=== PATIENT | female | born 1980 | race African-American/Black ===

== ENCOUNTER 2021-02-14 10:10 | Outpatient (REF) | payer OTHER, SELFPAY ==
[2021-02-14 13:35] LABS: Estimated Average Glucose 108 mg/dL; Hemoglobin A1c % 5.4 %
== END 2021-02-14 10:11 | disposition home or self-care (01) ==
LOC: HO.WFDLDS 10:10
PROVIDERS: Visit Provider Family Medicine
DX: R73.01 Impaired fasting glucose (principal)
CPT/HCPCS: 36415; 83036

== ENCOUNTER → 2021-07-13 10:35 | Outpatient (BNVA) | payer OTHER, SELFPAY | PROVIDERS: PCP Family Medicine; Visit Provider Nurse Practitioner Family | DX: R40.0 Somnolence (principal); R06.83 Snoring | CPT/HCPCS: 99202 ==

== ENCOUNTER → 2021-08-13 14:38 | Outpatient (REF) | payer OTHER, SELFPAY | LOC: HO.SL 14:38 | PROVIDERS: Visit Provider Nurse Practitioner Family | DX: G47.33 Obstructive sleep apnea (adult) (pediatric) (principal); R06.83 Snoring; R40.0 Somnolence; E66.01 Morbid (severe) obesity due to excess calories; Z68.42 Body mass index [BMI] 45.0-49.9, adult | CPT/HCPCS: 95806 ==

== ENCOUNTER 2021-10-02 12:43 | Outpatient (REF) | payer OTHER, SELFPAY | END 2021-10-02 12:44 | disposition home or self-care (01) | LOC: HO.LNP 12:43 | PROVIDERS: Visit Provider Hospitalist | DX: Z20.822 Contact with and (suspected) exposure to COVID-19 (principal) | CPT/HCPCS: U0003; U0005 ==

== ENCOUNTER → 2022-01-15 13:47 | Outpatient (BNVA) | payer OTHER, SELFPAY | PROVIDERS: PCP Family Medicine; Visit Provider Nurse Practitioner Family | DX: G47.33 Obstructive sleep apnea (adult) (pediatric) (principal) | CPT/HCPCS: 99212 ==

== ENCOUNTER 2022-01-22 12:12 | Outpatient (REF) | payer OTHER, SELFPAY ==
[2022-01-22 13:59] LABS: MANUAL DIFF FLAG NO
[2022-01-22 14:14] LABS: Basophils Percent Auto 0.5 % (0-2); Eosinophils Absolute Auto 0.2 X10*3/uL (0.0-0.4); Eosinophils Percent Auto 3.5 % (0-4); Hematocrit 39.1 % (37.0-47.0); Hemoglobin 13.2 g/dl (12.0-16.0); Imm Gran Abs Auto 0.02 X10*3/uL (0.00-0.03); Imm Gran Pct Auto 0.4 % (0.0-0.4); Lymphocytes Absolute Auto 2.5 X10*3/uL (1.2-4.9); Lymphocytes Percent Auto 45.7 % (20-40); Mean Corpuscular HGB Conc 33.8 g/dl (31.0-35.0); Mean Corpuscular Hemoglobin 31.3 pg (27.0-33.0); Mean Corpuscular Volume 92.7 fL (80.0-98.0); Mean Platelet Volume 9.5 fL (9.4-12.3); Monocytes Absolute Auto 0.4 X10*3/uL (0.1-1.2); Monocytes Percent Auto 7.1 % (2-11); Neutrophils Absolute Auto 2.4 x10*3/uL (2.0-8.3); Neutrophils Percent Auto 42.8 % (45-73); Platelet Count 345 X10*3/uL (160-400); Red Blood Count 4.22 X10*6/uL (4.20-5.50); Red Cell Distribution Width 13.2 % (11.0-16.0); White Blood Count 5.5 X10*3/uL (4.8-10.8)
[2022-01-22 14:31] LABS: Appearance Urine Clear; Color Urine Yellow; Glucose Urine UA Negative (Negative); Leukocyte Esterase Urine Negative (Negative); Nitrite Urine Negative (Negative); Urine Blood Negative (Negative); Urine Ketones Negative (Negative); Urine Protein Negative (Neg-Trace)
[2022-01-22 14:42] LABS: Alanine Aminotransferase 34 U/L (0-31); Albumin Level 4.3 g/dL (3.5-5.0); Alkaline Phosphatase 73 U/L (39-117); Anion Gap 14 (12-20); Aspartate Amino Transferase 30 U/L (5-31); Bilirubin Total 1.1 mg/dL (0.0-1.0); Blood Urea Nitrogen 13 mg/dL (9-16); Calcium 9.6 mg/dL (8.4-10.2); Carbon Dioxide 25 mmol/L (22-29); Chloride 106 mmol/L (96-108); Cholesterol 161 mg/dL; Estimated Glomerular Filt Rate > 60; Glucose Fasting 87 mg/dL (60-99); HDL Cholesterol 40 mg/dL; LDL Cholesterol Calculated 98 mg/dl; Potassium 3.8 mmol/L (3.3-5.1); Sodium 141 mmol/L (135-145); TSH reflex Free T4 1.02 uIU/mL (0.32-4.0); Triglycerides 118 mg/dL
[2022-01-22 16:10] LABS: Creatinine Urine 74.37 mg/dL; Microalbumin Urine < 5.0 mg/L
== END 2022-01-22 12:13 | disposition home or self-care (01) ==
LOC: HO.WFDLDS 12:12
PROVIDERS: Visit Provider Family Medicine
DX: Z00.00 Encounter for general adult medical examination without abnormal findings (principal); I10 Essential (primary) hypertension
CPT/HCPCS: 36415; 80053; 80061; 81003; 82043; 84443; 85025

== ENCOUNTER 2022-04-16 09:21 | Outpatient (REF) | payer OTHER, SELFPAY ==
--- NOTE | ~2022-04-16 | MM_ITS ---
EXAMINATION: MM SCREENING DIGITAL BREAST TOMOSYNTHESIS, BILATERAL CLINICAL INFORMATION: Screening. Asymptomatic. The lifetime risk of breast cancer based on the Tyrer-Cuzick Model is 18%. COMPARISON: Mammography: None. TECHNIQUE: Digital breast tomosynthesis is performed in both the craniocaudal and mediolateral oblique views along with computer-aided detection (CAD). Synthesized 2D images are generated from the tomosynthesis. FINDINGS: There are scattered areas of fibroglandular density (ACR BI-RADS breast composition Category b). Within the right breast there is a lobulated, circumscribed density measuring approximately 1 cm in diameter, lying approximately 8 cm from the nipple. Within the left breast in mediolateral oblique projection there is an asymmetric density seen in the central breast, just superior to the nipple line, on medial oblique projection with the appearance of architectural distortion. Within the central lateral left breast there is an asymmetric density, with some adjacent serpiginous density, lying approximately 13 cm from the nipple. Multiple other circumscribed densities are present. MM/MM tomosynthesis screening BI IMPRESSION: Multiple bilateral breast densities for spot compression views and bilateral breast ultrasound. ASSESSMENT: BI-RADS 0: Incomplete - Need Additional Imaging Evaluation. RECOMMENDATION: 1. Additional views of the bilateral breasts. 2. Targeted ultrasound if warranted after review of the additional views. 3. Radiology department staff will contact the patient for additional imaging. This patient's information was entered into a reminder system with a target due date for their next mammogram.
== END 2022-04-16 09:22 | disposition home or self-care (01) ==
LOC: HO.MAMMO 09:21
PROVIDERS: PCP Family Medicine; Visit Provider Family Medicine
DX: Z12.31 Encounter for screening mammogram for malignant neoplasm of breast (principal)
CPT/HCPCS: 77063; 77067

== ENCOUNTER 2022-06-21 12:34 | Outpatient (REF) | payer OTHER, SELFPAY ==
--- NOTE | ~2022-06-21 | MM_ITS ---
EXAMINATION: MM DIAGNOSTIC DIGITAL BREAST TOMOSYNTHESIS, BILATERAL US DIAGNOSTIC ULTRASOUND BREAST, RIGHT CLINICAL INFORMATION: Recall from baseline exam for asymmetric density central outer left breast and macrolobulated nodule lateral right breast. TC score 18%. COMPARISON: Mammography: 04/16/2022 (baseline). TECHNIQUE: Digital breast tomosynthesis is performed. 2D images are generated from the tomosynthesis. The following views are obtained: Spot right CC x2, spot right MLO, spot left CC x2, spot left MLO x2. Ultrasound right breast is targeted to the anterior upper outer breast using grayscale imaging and color Doppler without and with harmonics. FINDINGS: There are scattered areas of fibroglandular density (ACR BI-RADS breast composition Category b). Additional views left breast shows scattered fibroglandular densities. There is no mass or architectural abnormality or persistent asymmetric density. Additional views right breast confirm a smooth nodule approximately 9:30 measuring around 1 cm residing 6-9 cm from nipple. Ultrasound right breast demonstrates a circumscribed hypoechoic nodule 8-10 cm from nipple measuring approximately 1.0 x 0.4 x 0.9 cm. Long axis is parallel with the skin. There is no increased or decreased through transmission of sound. No definite internal color flow. Results are discussed with the patient at time of visit. The right breast nodule has a benign appearance, possibly fibroadenoma. Suggest follow-up ultrasound in 6 months to confirm stability. MM/MM tomosynthesis added view BI IMPRESSION: Right: -Circumscribed nodule 9:30 o'clock measuring 1 cm, suspect fibroadenoma. Left: -Additional views show no suspicious findings. ASSESSMENT: BI-RADS 3: Probably Benign RECOMMENDATION: Targeted right breast ultrasound in 6 months. This patient's information was entered into a reminder system with a target due date for their next mammogram.
== END 2022-06-21 12:35 | disposition home or self-care (01) ==
LOC: HO.MAMMO 12:34
PROVIDERS: PCP Family Medicine; Visit Provider Family Medicine
DX: R92.2 Inconclusive mammogram (principal)
CPT/HCPCS: 76642; 77062; 77066

== ENCOUNTER 2022-09-18 10:04 | Outpatient (AMB) | payer OTHER, SELFPAY ==
--- NOTE | 2022-09-18 10:19 | MHC.PC.OV ---
Vital Signs 09/18/22 10:21 Height 4 ft 11 in Weight 218 lb 6 oz BMI 44.1 BP 116/62 Blood Pressure Location Lt brachial Position Sitting Pulse 72 Pulse Source Pulse Oximeter Pulse Oximetry (%) 99 Oxygen Delivery Method Room Air Intake Visit Reasons: f/u diabetes Intake Note: Patient is here for follow up diabetes Allergies No Known Allergies Allergy (Verified 09/18/22 10:22) Tobacco use date assessed: 09/18/22 Dental Screening Dental Screen Date: 09/18/22 Did you have a dental visit in the last 12 months?: No Did you have a dental problem in the last 6 months where you did not have access to dental care?: No Was dental information given to patient?: No HPI f/u diabetes HPI Details Pt presents to f/u diabetes. A1c today 09/18/22 5.6%. She is on metformin 500mg daily. She reports she has been walking more for exercise. Blood pressure today 116/62. She is on amlodipine 10mg and lisinopril 10mg daily. Pt states betamethasone cream has been helping with her dermatitis. [facility] Medical History Diabetes Hypertension Surgical History No pertinent past surgical history Family History (Updated 09/18/22 @ 10:27 by Yolande Webb CMA) Mother Mental health disorder Father No problems noted. Brother Substance abuse Autism Maternal Grandmother Mental health disorder Social History Housing: Apartment Alcohol intake: never Patient Tobacco Use Status: Never used Tobacco e-Cigarette/Vaping Use: Never Used Second Hand Smoke Exposure: No service: No Current occupational status: disabled Current occupational exposures/hazards: No Cognitive needs: No Hearing needs: No Vision needs: No Questionnaire PHQ-9 Over the last 2 weeks, how often have you been bothered by any of the following problems? 1. Little interest or pleasure in doing things: not at all 2. Feeling down, depressed, or hopeless: not at all 3. Trouble falling or staying asleep, or sleeping too much: not at all 4. Feeling tired or having little energy: not at all 5. Poor appetite or overeating: not at all 6. Feeling bad about yourself - or that you are a failure or have let yourself or your family down: not at all 7. Trouble concentrating on things, such as reading the newspaper or watching television: not at all 8. Moving or speaking so slowly that other people could have noticed. Or the opposite - being so fidgety or restless that you have been moving around a lot more than usual: not at all 9. Thoughts that you would be better off or of hurting yourself in some way: not at all Total score: 0 Depression Screening Interpretation: Negative Source: Developed by Drs. Ralph Carias, Constance Mcgee, Monico Clement and colleagues, with an educational viki from [employer]. Thrive Questionnaire Date Thrive assessed: 11/15/20 JOSÉ LUIS-7 AMB Questionnaire JOSÉ LUIS-7 Date JOSÉ LUIS - 7 assessed: 04/09/22 Source: Developed by Drs. Ralph Carias, Constance Mcgee, Monico Clement and colleagues, with an educational viki from [employer]. Review of Systems Const Denies chills, Denies fatigue, Denies fever(s), Denies headache(s) and Denies weakness ENT Denies dizziness and Denies headache(s) Card Denies chest pain, Denies lightheadedness, Denies dyspnea and Denies other (Palpitations) Resp Denies cough, Denies dyspnea, Denies wheezing and Denies other ( shortness of breath) Musc Denies numbness and Denies tingling Neuro Denies dizziness, Denies headache(s), Denies numbness, Denies tingling, Denies paresthesias and Denies weakness Psych Denies anxiety and Denies depression Endo Denies fatigue Aller/Immun Denies wheezing Physical exam (Primary Care) Vital Signs: Last Vital Signs Pulse 72 09/18/22 10:21 BP 116/62 09/18/22 10:21 Pulse Ox 99 09/18/22 10:21 Oxygen Delivery Method Room Air 09/18/22 10:21 BMI result Body Mass Index 44.1 Tobacco/Smoking Status: Tobacco use Status Tobacco use date assessed 09/18/22 09/18/22 10:27 Patient Tobacco Use Status Never used Tobacco 09/18/22 10:20 e-Cigarette/Vaping Use Never Used 09/18/22 10:20 PHQ-9: PHQ-9 Score PHQ-9: Total score 0 09/18/22 10:58 Depression Screening Interpretation: Negative Thrive Assessment: Date of Thrive Assessment Date Thrive assessed 11/15/20 09/18/22 10:20 Const General: no acute distress and well developed Nutritional Appearance: obese morbidly obese Orientation/consciousness: patient oriented x3 HENMT Head: Yes normocephalic and Yes atraumatic Eyes General: appearance normal, both eyes and all related structures Pupils: Equal, round and reactive pupils present EOM: EOMs intact bilaterally Resp Effort & Inspection: normal respiratory effort Auscultation: clear to auscultation bilaterally Cardio Rate: regular rate Rhythm: regular rhythm Heart sounds: S1 normal heart sound present, S2 normal heart sound present, no gallops, no murmurs and no rubs Neuro General: patient oriented x3 and gait normal Cranial nerves: Yes Equal, round and reactive pupils present Psych Affect: normal affect Results AMB Hemoglobin A1c AMB Hemoglobin A1c 5.6 % Last Edit by Yolande Webb CMA on 09/18/22 10:41 Results Reviewed Results Reviewed: Laboratory Last Values Hgb A1c (Clinic) 5.6 % (4.0-6.0) 09/18/22 10:40 Assessment and Plan Assessment & Plan (1) Diabetes type 2, controlled: Code(s): E11.9 - Type 2 diabetes mellitus without complications Plan: A1c 5.6% is good control. Goal is less than 7.0% Continue current medication regimen (2) Dermatitis: Code(s): L30.9 - Dermatitis, unspecified Plan: Ongoing right hand dermatitis which is responsive to betamethasone cream; refilled (3) Essential hypertension: Code(s): I10 - Essential (primary) hypertension Plan: Blood pressure is controlled. Goal is less than 140/90 Continue current medication regimen (4) Abnormal mammogram: Code(s): R92.8 - Other abnormal and inconclusive findings on diagnostic imaging of breast Plan: Additional views in June showed 1 cm lesion in right breast which is most likely a fibroadenoma. And showed no further abnormalities in the left breast. A six-month follow-up is recommended which would be in December. Orders: Orders AMB Hemoglobin A1c Today Z13.9 - Encounter for screening, unspecified Comprehensive [facility]igator. Panel Fast Today Z00.00 - Encounter for general adult medical examination without abnormal findings Lipid Panel Today Z00.00 - Encounter for general adult medical examination without abnormal findings TSH reflex Free T4 Today Z00.00 - Encounter for general adult medical examination without abnormal findings Microalbumin, Random (w Creat) Today I10 - Essential (primary) hypertension UA and rflx microscopic Today Z00.00 - Encounter for general adult medical examination without abnormal findings Referrals Ophthalmology Referral E11.9 - Type 2 diabetes mellitus without complications Medications: Refilled metformin ER 500 mg PO BEDTIME 90 tabs 0RF omeprazole 20 mg PO DAILY 90 caps 0RF lisinopril 10 mg PO DAILY 90 tabs 1RF hydrochlorothiazide 25 mg PO DAILY 90 tabs 2RF betamethasone dipropionate 0.05% 1 appl topical DAILY PRN 45 grams 2RF skin irritation 30 days amlodipine 10 mg PO DAILY 90 tabs 3RF 90 days Coding Level of Care Code Est Pt Level 4 (14496) Diagnoses Diabetes type 2, controlled E11.9 Dermatitis L30.9 Essential hypertension I10 Abnormal mammogram R92.8
[2022-09-18 10:21] VITALS: BP 116/62; PULSE 72; O2SAT 99; BMI 44.1
== END 2022-09-18 11:05 | disposition home or self-care (01) ==
PROVIDERS: PCP Family Medicine; Visit Provider Family Medicine
DX: E11.620 Type 2 diabetes mellitus with diabetic dermatitis (principal); I10 Essential (primary) hypertension; L30.9 Dermatitis, unspecified; R92.8 Other abnormal and inconclusive findings on diagnostic imaging of breast
CPT/HCPCS: 83036; 99214

== ENCOUNTER 2022-12-20 10:30 | Outpatient (REF) | payer OTHER, SELFPAY ==
--- NOTE | ~2022-12-20 | US_ITS ---
EXAMINATION: US DIAGNOSTIC ULTRASOUND BREAST, RIGHT CLINICAL INFORMATION: 6 month Follow-up probably benign mass right breast 9:00 axis, 10 cm from the nipple. COMPARISON: 06/21/2022 ultrasound right breast. TECHNIQUE: Ultrasound of the right breast is performed with real-time issa scale imaging and color Doppler. Attention was given to the 9:00 axis. FINDINGS: There is a stable oval circumscribed hypoechoic mass at the 9:00 axis, 10 cm from the nipple, measuring 0.9 x 0.4 x 0.9 cm, unchanged. There is no internal color Doppler flow. There are no posterior features. This remains probably benign and is likely a fibroadenoma or variant. No additional abnormalities noted. US/US breast RT limited mamm only IMPRESSION: No significant interval change in subcentimeter right breast 9:00 oval probably benign mass. Six-month interval follow-up recommended to establish one-year stability. Results were discussed with the patient at time of visit. ASSESSMENT: BI-RADS 3: Probably Benign RECOMMENDATION: Diagnostic ultrasonography right breast in 6 months. This patient's information was entered into a reminder system with a target due date.
== END 2022-12-20 10:31 | disposition home or self-care (01) ==
LOC: HO.MAMMO 10:30
PROVIDERS: PCP Family Medicine; Visit Provider Family Medicine
DX: N63.15 Unspecified lump in the right breast, overlapping quadrants (principal)
CPT/HCPCS: 76642

== ENCOUNTER → 2022-12-20 11:00 | Outpatient (BNV) | payer OTHER, SELFPAY | PROVIDERS: PCP Family Medicine; Visit Provider Radiology Diagnostic Radiology | DX: D24.1 Benign neoplasm of right breast (principal) | CPT/HCPCS: 76642 ==

== ENCOUNTER 2023-01-20 08:49 | Outpatient (REF) | payer OTHER, SELFPAY ==
[2023-01-20 11:13] LABS: Appearance Urine Turbid; Color Urine Yellow; Glucose Urine UA Negative (Negative); Leukocyte Esterase Urine Negative (Negative); Nitrite Urine Negative (Negative); PH 5.5 (5.0-9.0); Specific Gravity - Urine 1.025 (1.005-1.025); Urine Blood Negative (Negative); Urine Ketones Negative (Negative); Urine Protein Trace mg/dL (Neg-Trace)
[2023-01-20 11:47] LABS: Alanine Aminotransferase 45 U/L (0-31); Albumin Level 4.3 g/dL (3.5-5.0); Alkaline Phosphatase 70 U/L (39-117); Anion Gap 11 (12-20); Aspartate Amino Transferase 38 U/L (5-31); Bilirubin Total 1.2 mg/dL (0.0-1.0); Blood Urea Nitrogen 12 mg/dL (9-16); Calcium 9.3 mg/dL (8.4-10.2); Carbon Dioxide 28 mmol/L (22-29); Chloride 105 mmol/L (96-108); Cholesterol 168 mg/dL (<200); Estimated Glomerular Filt Rate > 60; Glucose Fasting 93 mg/dL (60-99); HDL Cholesterol 46 mg/dL (>40); LDL Cholesterol Calculated 108 mg/dL (<100); Potassium 3.7 mmol/L (3.3-5.1); Sodium 140 mmol/L (135-145); Total Protein 7.5 g/dL (6.5-8.0); Triglycerides 74 mg/dL (<150)
[2023-01-20 12:05] LABS: Creatinine Urine 226.54 mg/dL; Microalbum/Creatinine Ratio Ur 28.2 ug/mg cr (<30)
[2023-01-20 12:06] LABS: TSH reflex Free T4 1.04 uIU/mL (0.32-4.0)
== END 2023-01-20 08:50 | disposition home or self-care (01) ==
LOC: HO.WFDLDS 08:49
PROVIDERS: Visit Provider Family Medicine
DX: Z00.00 Encounter for general adult medical examination without abnormal findings (principal); I10 Essential (primary) hypertension
CPT/HCPCS: 36415; 80053; 80061; 81003; 82043; 82570; 84443

== ENCOUNTER 2023-01-27 08:27 | Outpatient (AMB) | payer OTHER, SELFPAY ==
--- NOTE | 2023-01-27 08:37 | A.OFFPC_ITS ---
Vital Signs 01/27/23 08:38 Height 4 ft 11 in Weight 225 lb BMI 45.4 BP 122/72 Blood Pressure Location Rt brachial Position Sitting Pulse 71 Pulse Source Pulse Oximeter Pulse Oximetry (%) 98 Oxygen Delivery Method Room Air Intake Visit Reasons: Extended exam with f/u labs and health maintenance Intake Note: Patient is here for extended exam and follow up labs. Allergies No Known Allergies Allergy (Verified 01/27/23 08:39) Tobacco use date assessed: 01/27/23 Dental Screening Dental Screen Date: 01/27/23 Did you have a dental visit in the last 12 months?: No Did you have a dental problem in the last 6 months where you did not have access to dental care?: No Was dental information given to patient?: No HPI Extended exam with f/u labs and health maintenance HPI Details 42 y/o female presents for an extended e xam with f/u labs and health maintenance. Labs were drawn 01/20/23. Reviewed labs with pt. Elevated liver enzymes - AST 38 and ALT 45. She denies EtOH/tylenol use. Triglycerides 74. TC 168. LDL 108. HDL 46. A1c today 01/27/23 is 5.5%. She is on metformin 500mg. Blood pressure today 122/72. She is on lisinopril 10mg, hydrochlorothiazide 25mg and amlodipine 10 mg daily. [facility] Medical History Hypertension Diabetes Surgical History No pertinent past surgical history Family History Mother Mental health disorder Father No problems noted. Brother Substance abuse Autism Maternal Grandmother Mental health disorder Social History Housing: Apartment Alcohol intake: never Patient Tobacco Use Status: Never used Tobacco e-Cigarette/Vaping Use: Never Used Second Hand Smoke Exposure: No service: No Current occupational status: disabled Current occupational exposures/hazards: No Cognitive needs: No Hearing needs: No Vision needs: No Questionnaire Thrive Questionnaire Date Thrive assessed: 11/15/20 JOSÉ LUIS-7 AMB Questionnaire JOSÉ LUIS-7 Date JOSÉ LUIS - 7 assessed: 04/09/22 Source: Developed by Drs. Ralph Carias, Constance Mcgee, Monico Clement and colleagues, with an educational viki from [employer]. Review of Systems Const Denies chills, Denies fatigue, Denies fever(s), Denies headache(s) and Denies weakness Eyes Denies change in vision ENT Denies dizziness, Denies headache(s), Denies hearing loss, Denies nasal congestion, Denies sinus pain, Denies sinus pressure and Denies sore throat Card Denies chest pain, Denies lightheadedness, Denies dyspnea and Denies other (palpitations) Resp Denies cough, Denies dyspnea and Denies wheezing GI Denies abdominal pain, Denies melena, Denies hematochezia, Denies change in bowel habits, Denies dyspepsia and Denies nausea Denies hematuria and Denies dysuria Musc Denies abnormal gait, Denies myalgias, Denies arthralgias, Denies numbness and Denies tingling Skin/Breast Denies rash, Denies unusual bruising and Denies wounds Neuro Denies abnormal gait, Denies dizziness, Denies headache(s), Denies memory loss, Denies numbness, Denies Sensory deficit (Neuro), Denies tingling and Denies weakness Psych Denies anxiety, Denies depression and Denies memory loss Endo Denies cold intolerance, Denies fatigue, Denies heat intolerance, Denies polydipsia and Denies polyuria Carlos/Lymph Denies easy bleeding and Denies easy bruising Aller/Immun Denies wheezing Physical exam (Primary Care) Vital Signs: Last Vital Signs Pulse 71 01/27/23 08:38 BP 122/72 01/27/23 08:38 Pulse Ox 98 01/27/23 08:38 Oxygen Delivery Method Room Air 01/27/23 08:38 BMI result Body Mass Index 45.4 Tobacco/Smoking Status: Tobacco use Status Tobacco use date assessed 01/27/23 01/27/23 08:45 Patient Tobacco Use Status Never used Tobacco 01/27/23 08:38 e-Cigarette/Vaping Use Never Used 01/27/23 08:38 Thrive Assessment: Date of Thrive Assessment Date Thrive assessed 11/15/20 01/27/23 08:38 Const General: no acute distress, well developed, alert and awake Nutritional Appearance: obese morbidly obese Orientation/consciousness: patient oriented x3 HENMT Head: Yes normocephalic and Yes atraumatic Ears: hearing grossly normal bilaterally and TM's normal bilaterally General nose exam: Normal external nose present and Normal nares present Mouth: Normal oral and palatal mucosa present and moist mucous membranes Teeth and gingiva: dentition normal Throat: Yes posterior oropharynx normal Eyes General: appearance normal, both eyes and all related structures Pupils: Equal, round and reactive pupils present and Pupil accommodation reflex normal EOM: EOMs intact bilaterally Neck Neck: Yes normal visual inspection, Yes no lymphadenopathy and Yes trachea midline Thyroid: Thyroid normal Carotids: no bruits Lymphatic: no lymphadenopathy noted Chest Chest palpation & inspection: normal inspection of the chest Resp Effort & Inspection: normal respiratory effort Auscultation: clear to auscultation bilaterally Cardio Rate: regular rate Rhythm: regular rhythm Heart sounds: S1 normal heart sound present, S2 normal heart sound present, no gallops, no murmurs and no rubs Bruits: no abdominal aortic bruits and no carotid bruits GI Palpation (GI): No Abdominal aortic bruit present, Soft to palpation, nontender, No hepatosplenomegaly present and No Rebound tenderness present Auscultation: normal bowel sounds General: Yes no CVA tenderness Back/Spine/Pelvis Back: no CVA tenderness Cervical Spine: cervical ROM normal and No Cervical spine tenderness Thoracic/Lumbar Spine: thoraco-lumbar ROM normal, No pain with thoraco-lumbar ROM, No thoracic spinal tenderness and No lumbar spinal tenderness Skin Lesions: no lesions Rashes: no rashes Trauma: no lacerations or abrasions Wounds: no wounds Nails: normal Neuro General: patient oriented x3 Cranial nerves: Yes Equal, round and reactive pupils present Cognition (Neuro): normal cognition Gait exam (Neuro): Normal gait present Motor exam (neuro): 5/5 motor strength present throughout Sensory Exam: No Sensory deficit (Neuro) Deep tendon reflexes (DTR's): Right patellar reflex intensity grade: 2+ and Left patellar reflex intensity grade: 2+ Extrem General: Yes normal to inspection and No edema Psych Appearance: grossly normal Affect: normal affect Attitude: cooperative Thought process: Normal thought process present Results AMB Hemoglobin A1c AMB Hemoglobin A1c 5.5 % Last Edit by Yolande Webb CMA on 01/27/23 09:43 Assessment and Plan Assessment & Plan (1) Essential hypertension: Code(s): I10 - Essential (primary) hypertension Plan: Blood?pressure?is?controlled.??Goal?is?less?than?140/90 Continue?current?medication?regimen (2) Diabetes type 2, controlled: Code(s): E11.9 - Type 2 diabetes mellitus without complications Plan: A1c?5.5%?is?good?control.??Goal?is?less?than?7.0% Continue?current?medication?regimen Continue?healthy?diabetic?diet Encouraged?exercise Overdue?for?eye?exam?and?she?requests?a?referral[facility]to[facility] - refer (3) Elevated liver enzymes: Code(s): R74.8 - Abnormal levels of other serum enzymes Plan: Check?ultrasound Encouraged?weight?loss (4) Breast cancer screening by mammogram: Code(s): Z12.31 - Encounter for screening mammogram for malignant neoplasm of breast Plan: Recent?abnormal?mammogram?and?had?follow-up?ultrasound. Ultrasound?likely?benign?but?recommends?six-month?follow-up?as?well. 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 Orders: Orders AMB Hemoglobin A1c Today Z13.9 - Encounter for screening, unspecified US abdomen wilks w elastography Today R74.01 - Elevation of levels of liver transaminase levels Lipid Panel Today E11.9 - Type 2 diabetes mellitus without complications, Z00.00 - Encounter for general adult medical examination without abnormal findings Comprehensive [place]. Panel Fast Today E11.9 - Type 2 diabetes mellitus without complications, Z00.00 - Encounter for general adult medical examination without abnormal findings Referrals Ophthalmology Referral E11.9 - Type 2 diabetes mellitus without complications [employer] Referral Z12.4 - Encounter for screening for malignant neoplasm of cervix Medications: Refilled betamethasone dipropionate 0.05% 1 appl topical DAILY 30 days PRN 45 grams 2RF skin irritation Coding Level of Care Code Est Pt Level 4 (79443) Diagnoses Essential hypertension I10 Diabetes type 2, controlled E11.9 Elevated liver enzymes R74.8 Breast cancer screening by mammogram Z12.31 Morbid obesity with BMI of 45.0-49.9, adult E66.01; Z68.42 Screening for cervical cancer Z12.4 Adult general medical exam Z00.00
[2023-01-27 08:38] VITALS: BP 122/72; PULSE 71; O2SAT 98; BMI 45.4
== END 2023-01-27 09:49 | disposition home or self-care (01) ==
PROVIDERS: PCP Family Medicine; Visit Provider Family Medicine
DX: I10 Essential (primary) hypertension (principal); E11.9 Type 2 diabetes mellitus without complications; E66.01 Morbid (severe) obesity due to excess calories; Z68.42 Body mass index [BMI] 45.0-49.9, adult; R74.8 Abnormal levels of other serum enzymes; Z12.31 Encounter for screening mammogram for malignant neoplasm of breast
CPT/HCPCS: 83036; 99214

== ENCOUNTER 2023-04-04 09:31 | Outpatient (REF) | payer OTHER, SELFPAY ==
--- NOTE | ~2023-04-04 | US_ITS ---
EXAMINATION: US ABDOMEN LIMITED WITH LIVER ELASTOGRAPHY CLINICAL INFORMATION: Elevation of a LT and AST levels. COMPARISON: None available. TECHNIQUE: Real-time imaging of the abdominal viscera. Noninvasive ultrasound liver fibrosis assessment is performed using Izzy ElastPQ point quantification shear wave elastography (2D-SWE) with a C5-2 MHz transducer. Multiple elastography samples are obtained. FINDINGS: PANCREAS: Limited. The visualized pancreatic head and body are normal in appearance. The remainder of the pancreas is obscured from visualization by the overlying bowel gas. LIVER: The liver demonstrates normal contour and increased echogenicity. No focal lesion or intrahepatic biliary duct dilatation. The right lobe measures 19.1 cm in length. The left lobe measures 11.1 cm in length. Portal flow is towards the liver (hepatopetal). Shear wave liver elastography median stiffness is 1.52 m/s (reference: normal median stiffness is 1.3 m/s or less). IQR/median stiffness to assess sampling precision is 0.04 (reference: good quality data set is IQR/median stiffness of 0.15 or less). GALLBLADDER: Normal. The gallbladder is physiologically distended without evidence of stones, sludge, polyps, wall thickening or pericholecystic fluid. COMMON BILE DUCT: Normal in caliber measuring 0.3 cm in diameter. RIGHT KIDNEY: Normal. No hydronephrosis. No renal calculi or focal parenchymal lesions. The kidney measures 11.1 cm in maximum dimension. FREE FLUID: None. US/US abdomen wilks w elastography IMPRESSION: 1. There is generalized increase in hepatic echotexture, consistent with fatty infiltration or hepatocellular disease. Please correlate clinically. No focal hepatic mass or intrahepatic biliary dilatation is seen. 2. Liver elastography: In the absence of other known clinical signs, measurements rule out compensated advanced chronic liver disease. If there are known clinical signs, further testing may be needed for confirmation. 3. There is hepatomegaly. 4. Technically limited ultrasound examination of the pancreatic tail. REFERENCE: Society of Radiologists in Ultrasound Liver Stiffness Thresholds (2020): LIVER STIFFNESS THRESHOLDS: *Liver Stiffness equal or less than 1.3 m/s: High probability of being normal. *Liver Stiffness less than 1.7 m/s: In the absence of other known clinical signs, rules out compensated advanced chronic liver disease. *Liver Stiffness 1.7-2.1 m/s: Suggestive of compensated advanced chronic liver disease but need further test for confirmation. *Liver Stiffness over 2.1 m/s: Rules in compensated advanced chronic liver disease. *Liver Stiffness over 2.4 m/s: Suggestive of clinically significant portal hypertension. QUALITY OF DATA SET: *IQR/Median value equal or less than 0.15 implies a quality data set. *IQR/Median value over 0.15 implies a poor quality data set. SIGNIFICANT CHANGE FROM PRIOR EXAM: Significant change if liver stiffness measurement is 10% or greater from prior exam. OTHER CONSIDERATIONS: The stage of liver fibrosis may be overestimated in the setting of acute hepatitis, liver inflammation, elevated liver function tests, hepatic vascular congestion, obstructive cholestasis, non-fasting state, and infiltrative diseases such as amyloidosis and lymphoma. In some patients with NAFLD, the liver stiffness thresholds for compensated advanced chronic liver disease may be lower. In causes other than viral hepatitis and NAFLD, liver stiffness thresholds are not well established.
== END 2023-04-04 09:32 | disposition home or self-care (01) ==
LOC: HO.US 09:31
PROVIDERS: PCP Family Medicine; Visit Provider Family Medicine
DX: R74.01 Elevation of levels of liver transaminase levels (principal)
CPT/HCPCS: 76705; 76981

== ENCOUNTER 2023-04-28 09:07 | Outpatient (AMB) | payer OTHER, SELFPAY ==
[2023-04-28 09:23] VITALS: BP 120/70; PULSE 81; O2SAT 98; BMI 45.0
--- NOTE | 2023-04-28 09:23 | A.OFFPC_ITS ---
Vital Signs 04/28/23 09:23 Height 4 ft 11 in Weight 223 lb BMI 45.0 BP 120/70 Blood Pressure Location Lt brachial Position Sitting Pulse 81 Pulse Source Pulse Oximeter Pulse Oximetry (%) 98 Oxygen Delivery Method Room Air Intake Visit Reasons: f/u diabetes, hypertension Intake Note: Patient is here with diabetes and hypertension. Allergies No Known Allergies Allergy (Verified 04/28/23 09:25) Medication List - Last Reconciled 04/28/23 by Rafael Bernal MD amlodipine 10 mg PO DAILY 90 days betamethasone dipropionate 0.05% 1 appl topical DAILY PRN 30 days blood sugar diagnostic (FreeStyle Lite Strips) DX: E11.9, test blood sugar once a day, 90 days blood-glucose meter (FreeStyle Lite Meter kit) DX: E11.9, test blood sugar once day, duration 999 days hydrochlorothiazide 25 mg PO DAILY lancets (FreeStyle Lancets) As directed lisinopril 10 mg PO DAILY metformin ER 500 mg PO BEDTIME omeprazole 20 mg PO DAILY Tobacco use date assessed: 04/28/23 Dental Screening Dental Screen Date: 04/28/23 Did you have a dental visit in the last 12 months?: Yes Did you have a dental problem in the last 6 months where you did not have access to dental care?: No Was dental information given to patient?: Patient has dentist HPI f/u diabetes, hypertension HPI Details 42 y/o female presents to f/u diabetes a nd hypertension. Blood pressure today 120/70. She is on amlodipine 10mg, lisinopril 10mg, HCTZ 25mg daily. A1c today 04/28/23 is 6.2%. She is on metformin 500mg daily. She denies any problems with her medication regimen. She ntoes she has not had a diabetic eye exam yet. FORMERLY [facility], [facility] Medical History Hypertension Diabetes Surgical History No pertinent past surgical history Family History Mother Mental health disorder Father No problems noted. Brother Substance abuse Autism Maternal Grandmother Mental health disorder Social History (Reviewed 02/19/24 @ 09:[address] [facility] Housing: Apartment Alcohol intake: never Patient Tobacco Use Status: Never used Tobacco e-Cigarette/Vaping Use: Never Used Second Hand Smoke Exposure: No service: No Current occupational status: disabled Current occupational exposures/hazards: No Cognitive needs: No Hearing needs: No Vision needs: No Questionnaire PHQ-9 Over the last 2 weeks, how often have you been bothered by any of the following problems? 1. Little interest or pleasure in doing things: not at all 2. Feeling down, depressed, or hopeless: not at all 3. Trouble falling or staying asleep, or sleeping too much: not at all 4. Feeling tired or having little energy: not at all 5. Poor appetite or overeating: not at all 6. Feeling bad about yourself - or that you are a failure or have let yourself or your family down: not at all 7. Trouble concentrating on things, such as reading the newspaper or watching television: not at all 8. Moving or speaking so slowly that other people could have noticed. Or the opposite - being so fidgety or restless that you have been moving around a lot more than usual: not at all 9. Thoughts that you would be better off or of hurting yourself in some way: not at all Total score: 0 Depression Screening Interpretation: Negative Depression Screening Done: Yes 64430 - PHQ-9 Billing: Yes Source: Developed by Drs. Ralph Carias, Constance Mcgee, Monico Clement and colleagues, with an educational viki from [employer]. Thrive Questionnaire Date Thrive assessed: 04/28/23 I am a: Patient What is your living situation today?: I have a steady place to live Within the past 12 months, did the food you bought not last and you didn't have the money to get more?: Often true Within the past 12 months, did you worry whether your food would run out before you got money to buy more?: Never true Do you have trouble paying for medicines?: No Do you have trouble getting transportation to medical appointments?: No Do you have trouble paying your heating and electricity bill?: No Do you have trouble taking care of your child, family member or friend?: No Do you have trouble with day-to-day activities such as bathing, preparing meals, shopping, managing finances, etc.?: No Are you currently unemployed and looking for a job?: No Are you interested in more education?: No THRIVE Score: 1 AUDIT C Alcohol Use Questionnaire (AUDIT-C) 1. How often do you have a drink containing alcohol?: Never 3. How often do you have six or more drinks on one occasion?: Never Total Score: 0 JOSÉ LUIS-7 AMB Questionnaire JOSÉ LUIS-7 Date JOSÉ LUIS - 7 assessed: 04/28/23 Feeling nervous, anxious, or on edge: 1 = Several days Not being able to stop or control worryin = Not at all Worrying too much about different things: 0 = Not at all Trouble relaxin = Not at all Being so restless that it is hard to sit still: 0 = Not at all Becoming easily annoyed or irritable: 0 = Not at all Feeling afraid as if something awful might happen: 0 = Not at all Total JOSÉ LUIS-7 score (0-4 normal; 5-9 mild; 10-14 moderate; 15-21 severe): 1 Source: Developed by Drs. Ralph Carias, Constance Mcgee, Monico Clement and colleagues, with an educational viki from [employer]. JOSÉ LUIS-7 Assessment Billing JOSÉ LUIS-7 Assessment Tool: JOSÉ LUIS-7 Assessment [id number] Review of Systems Const Denies chills, Denies fatigue, Denies fever(s), Denies headache(s) and Denies weakness ENT Denies dizziness and Denies headache(s) Card Denies chest pain, Denies lightheadedness, Denies dyspnea and Denies other (Palpitations) Resp Denies cough, Denies dyspnea, Denies wheezing and Denies other ( shortness of breath) Musc Denies numbness and Denies tingling Neuro Denies dizziness, Denies headache(s), Denies numbness, Denies tingling, Denies paresthesias and Denies weakness Psych Denies anxiety and Denies depression Endo Denies fatigue Aller/Immun Denies wheezing Physical exam (Primary Care) Vital Signs: Last Vital Signs Pulse 81 04/28/23 09:23 BP 120/70 04/28/23 09:23 Pulse Ox 98 04/28/23 09:23 Oxygen Delivery Method Room Air 04/28/23 09:23 BMI result Body Mass Index 45.0 Tobacco/Smoking Status: Tobacco use Status Tobacco use date assessed 04/28/23 04/28/23 09:25 Patient Tobacco Use Status Never used Tobacco 04/28/23 09:25 e-Cigarette/Vaping Use Never Used 04/28/23 09:25 PHQ-9: PHQ-9 Score PHQ-9: Total score 0 04/28/23 09:52 Depression Screening Interpretation: Negative Thrive Assessment: Date of Thrive Assessment Date Thrive assessed 04/28/23 04/28/23 09:32 Const General: no acute distress and well developed Nutritional Appearance: well nourished and obese morbidly obese Orientation/consciousness: patient oriented x3 HENMT Head: Yes normocephalic and Yes atraumatic Eyes General: appearance normal, both eyes and all related structures Pupils: Equal, round and reactive pupils present EOM: EOMs intact bilaterally Resp Effort & Inspection: normal respiratory effort Auscultation: clear to auscultation bilaterally Cardio Rate: regular rate Rhythm: regular rhythm Heart sounds: S1 normal heart sound present, S2 normal heart sound present, no gallops, no murmurs and no rubs Neuro General: patient oriented x3 and gait normal Cranial nerves: Yes Equal, round and reactive pupils present Psych Affect: normal affect Results AMB Hemoglobin A1c AMB Hemoglobin A1c 6.2 % Last Edit by Yolande Webb CMA on 04/28/23 09:43 Results Reviewed Results Reviewed: Laboratory Last Values Hgb A1c (Clinic) 6.2 % (4.0-6.0) H 04/28/23 09:37 Assessment and Plan Assessment & Plan (1) Diabetes type 2, controlled: Code(s): E11.9 - Type 2 diabetes mellitus without complications Plan: A1c?has?climbed?but?is?still?at?goal?of?less?than?7.0% Continue?current?medication?regimen Encouraged?lifestyle?changes Have?referred?her?to?Ophthalmology?several?times?but?she?has?still?not?had?an?ap pointment. Will?ask?the?nurse?navigator?to?help?her?arrange?this. (2) Essential hypertension: Code(s): I10 - Essential (primary) hypertension Plan: Blood?pressure?is?controlled.??Goal?is?less?than?140/90 Continue?current?medication (3) Elevated liver enzymes: Code(s): R74.8 - Abnormal levels of other serum enzymes Plan: Liver?enzymes?have?been?elevated?and?her?liver?ultrasound?showed?hepatic?steatos is. Elastography?shows?increased?stiffness?but?this?is?not?uncompensated?advanced?li meliton?disease Encouraged?weight?loss She?will?get?her?labs?redrawn?as?we?continue?to?follow?her?liver?enzymes. Orders: Orders AMB Hemoglobin A1c Today Z13.9 - Encounter for screening, unspecified Referrals Nurse Navigator Referral E11.9 - Type 2 diabetes mellitus without complications Coding Level of Care Code Est Pt Level 4 (62900) Diagnoses Diabetes type 2, controlled E11.9 Essential hypertension I10 Elevated liver enzymes R74.8 Additional Codes JOSÉ LUIS-7 Assessment Billing - JOSÉ LUIS-7 Assessment Tool: JOSÉ LUIS-7 Assessment [id number] ([id number])
== END 2023-04-28 10:02 | disposition home or self-care (01) ==
PROVIDERS: PCP Family Medicine; Visit Provider Family Medicine
DX: E11.9 Type 2 diabetes mellitus without complications (principal); I10 Essential (primary) hypertension; R74.8 Abnormal levels of other serum enzymes
CPT/HCPCS: 83036; 99214

== ENCOUNTER → 2023-06-18 14:30 | Outpatient (BNV) | payer OTHER, SELFPAY | PROVIDERS: PCP Family Medicine; Visit Provider Radiology Diagnostic Radiology | DX: R92.8 Other abnormal and inconclusive findings on diagnostic imaging of breast (principal) | CPT/HCPCS: 77066; G0279 ==

== ENCOUNTER 2023-06-18 14:33 | Outpatient (REF) | payer OTHER, SELFPAY ==
--- NOTE | ~2023-06-18 | MM_ITS ---
EXAMINATION: MM DIAGNOSTIC DIGITAL BREAST TOMOSYNTHESIS, BILATERAL CLINICAL INFORMATION: Bilateral screening. Also ultrasound follow-up of 10 mm probably benign nodule at the 9:00 axis, 10 cm from the nipple, anterior one third right breast. The patient could not stay for the right follow-up ultrasound because her transportation was leaving , and hence the follow-up ultrasound will be scheduled at a later date. COMPARISON: Mammography: 06/21/2022, 04/16/2022. Ultrasound right breast 12/20/2022, 06/21/2022. TECHNIQUE: Digital breast tomosynthesis is performed in both the craniocaudal and mediolateral oblique views along with computer-aided detection (CAD). Synthesized 2D images are generated from the tomosynthesis. In addition to standard views, added bilateral 3-D full-field CC, and bilateral 3-D full-field MLO views were also included due to pendulous nature of the breasts. FINDINGS: There are scattered areas of fibroglandular density (ACR BI-RADS breast composition Category b). There are bilateral skin calcifications with lucent centers. There is a stable appearing oval circumscribed mass measuring 1.0 cm in the 9:00 axis of the right breast, 8 cm from the nipple. The background stromal pattern is unchanged from prior exams in both breasts with no developing suspicious mass, no region of architectural distortion, and no suspicious grouped calcifications. No skin or axillary abnormalities are appreciated. MM/MM tomosynthesis diagnostic BI IMPRESSION: -No findings suspicious for malignancy in either breast. No changes from prior study. -Stable benign findings. -Mammographically stable probably benign nodule right breast 9:00 axis measuring 1.0 cm, anterior right breast. This was scheduled for six-month follow-up diagnostic ultrasound although the patient could not stay for the ultrasound as described above. Diagnostic ultrasound will be rescheduled. ASSESSMENT: BI-RADS BI-RADS 0 - Incomplete: Needs additional Imaging. RECOMMENDATION: Additional Imaging required Results were provided to the patient at time of visit by the technologist.
== END 2023-06-18 14:34 | disposition home or self-care (01) ==
LOC: HO.MAMMO 14:33
PROVIDERS: PCP Family Medicine; Visit Provider Family Medicine
DX: N63.15 Unspecified lump in the right breast, overlapping quadrants (principal)
CPT/HCPCS: 77062; 77066

== ENCOUNTER 2023-07-07 13:00 | Outpatient (REF) | payer OTHER, SELFPAY ==
--- NOTE | ~2023-07-07 | US_ITS ---
EXAMINATION: US DIAGNOSTIC ULTRASOUND BREAST, RIGHT CLINICAL INFORMATION: The patient presents for recommended short interval follow-up of a sonographic mass in the 9:00 position 10 cm from the nipple. COMPARISON: This study is compared with prior breast ultrasound imaging from June and December 2022 and prior screening mammography from April and June 2022. TECHNIQUE: Ultrasound of the breast is performed with real-time issa scale imaging and color Doppler. FINDINGS: Sonography of the 9:00 region of the right breast 10 cm from the nipple was performed. In this location, there is an oval 10 mm x 7 mm x 5 mm lobulated mass consisting of 3 contiguous small intramammary lymph nodes which are benign and unchanged over one year. This finding corresponds to the benign, oval, pliable mammographically benign mass present on the June and April 2022 mammogram. Results are discussed with the patient at time of visit. US/US breast RT limited mamm only IMPRESSION: No significant interval change in oval, 10 mm mass at the 9:00 region of the right breast 10 cm from the nipple. This finding consists of 3 adjacent, small normal intramammary lymph nodes. This is a normal finding in the breast. No further follow-up is necessary. ASSESSMENT: BI-RADS 1 - Negative RECOMMENDATION: 1 year F/U This patient's information was entered into a reminder system with a target due date for their next mammogram.
== END 2023-07-07 13:01 | disposition home or self-care (01) ==
LOC: HO.MAMMO 13:00
PROVIDERS: PCP Family Medicine; Visit Provider Family Medicine
DX: N63.15 Unspecified lump in the right breast, overlapping quadrants (principal)
CPT/HCPCS: 76642

== ENCOUNTER → 2023-07-07 13:00 | Outpatient (BNV) | payer OTHER, SELFPAY | PROVIDERS: PCP Family Medicine; Visit Provider Radiology Diagnostic Radiology | DX: N63.15 Unspecified lump in the right breast, overlapping quadrants (principal) | CPT/HCPCS: 76642 ==

== ENCOUNTER 2023-07-28 10:01 | Outpatient (AMB) | payer OTHER, SELFPAY ==
--- NOTE | 2023-07-28 10:15 | A.OFFPC_ITS ---
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: No Allergies No Known Allergies Allergy (Verified 07/28/23 10:16) Medication List - Last Reconciled 07/28/23 by Rafael Bernal MD amlodipine 10 mg PO DAILY 90 days betamethasone dipropionate 0.05% 1 appl topical DAILY PRN 30 days blood sugar diagnostic (FreeStyle Lite Strips) DX: E11.9, test blood sugar once a day, 90 days blood-glucose meter (FreeStyle Lite Meter kit) DX: E11.9, test blood sugar once day, duration 999 days hydrochlorothiazide 25 mg PO DAILY lancets (FreeStyle Lancets) As directed lisinopril 10 mg PO DAILY metformin ER 500 mg PO BEDTIME omeprazole 20 mg PO DAILY Tobacco use date assessed: 04/28/23 Dental Screening Dental Screen Date: 04/28/23 HPI f/u diabetes HPI Details 42 y/o female presents to f/u diabetes. A1c today 07/28/23 5.6%. She is on metformin 500mg. She continues to watch what she eats. Blood pressure today 120/72. She is on lisinopril 10mg, HCTZ 25mg, amlodioine 10mg daily. [facility] Medical History Hypertension Diabetes Surgical History No pertinent past surgical history Family History Mother Mental health disorder Father No problems noted. Brother Substance abuse Autism Maternal Grandmother Mental health disorder Social History Housing: Apartment Alcohol intake: never Patient Tobacco Use Status: Never used Tobacco e-Cigarette/Vaping Use: Never Used Second Hand Smoke Exposure: No service: No Current occupational status: disabled Current occupational exposures/hazards: No Cognitive needs: No Hearing needs: No Vision needs: No Questionnaire Thrive Questionnaire Date Thrive assessed: 04/28/23 JOSÉ LUIS-7 AMB Questionnaire JOSÉ LUIS-7 Date JOSÉ LUIS - 7 assessed: 04/28/23 Source: Developed by Drs. Ralph Carias, Constance Mcgee, Monico Clmeent and colleagues, with an educational viki from [employer]. Review of Systems Const Denies chills, Denies fatigue, Denies fever(s), Denies headache(s) and Denies weakness ENT Denies dizziness and Denies headache(s) Card Denies dyspnea Resp Denies cough, Denies dyspnea, Denies wheezing and Denies other (shortness of breath) Musc Denies numbness and Denies tingling Neuro Denies dizziness, Denies headache(s), Denies numbness, Denies tingling and Denies weakness Psych Denies anxiety and Denies depression Endo Denies fatigue Aller/Immun Denies wheezing Physical exam (Primary Care) Vital Signs: Last Vital Signs Pulse 80 07/28/23 10:16 BP 120/72 07/28/23 10:16 Pulse Ox 98 07/28/23 10:16 BMI result Body Mass Index 45.8 Tobacco/Smoking Status: Tobacco use Status Tobacco use date assessed 04/28/23 07/28/23 10:20 Patient Tobacco Use Status Never used Tobacco 07/28/23 10:20 e-Cigarette/Vaping Use Never Used 07/28/23 10:20 Thrive Assessment: Date of Thrive Assessment Date Thrive assessed 04/28/23 07/28/23 10:20 Const General: well developed; No acute distress Nutritional Appearance: well nourished Orientation/consciousness: patient oriented x3 [facility] Head: Yes normocephalic and Yes atraumatic Eyes General: appearance normal, both eyes and all related structures Pupils: Equal, round and reactive pupils present EOM: EOMs intact bilaterally Resp Effort & Inspection: normal respiratory effort Auscultation: clear to auscultation bilaterally Cardio Rate: regular rate Rhythm: regular rhythm Heart sounds: S1 normal heart sound present, S2 normal heart sound present, no gallops, no murmurs and no rubs Neuro General: patient oriented x3 and gait normal Cranial nerves: Yes Equal, round and reactive pupils present Psych Affect: normal affect Results AMB Hemoglobin A1c AMB Hemoglobin A1c 6.5 % Last Edit by Godwin Casanova CMA on 07/28/23 10: 28 Assessment and Plan Assessment & Plan (1) Diabetes type 2, controlled: Code(s): E11.9 - Type 2 diabetes mellitus without complications Plan: A1c?5.6%.??Good?control.??Goal?is?less?than?7.0% Continue?current?medication (2) Essential hypertension: Code(s): I10 - Essential (primary) hypertension Plan: Blood?pressure?is?well?controlled.??Goal?is?less?than?140/90 Continue?current?medication?regimen (3) Elevated liver enzymes: Code(s): R74.8 - Abnormal levels of other serum enzymes Plan: Elevated?liver?enzymes?in?the?past?with?mildly?elevated?elas tography?though?not?in?compensated?advanced?liver?disease?range. Encouraged?weight?loss Checking?liver?enzymes Orders: Orders AMB Hemoglobin A1c Today Z13.9 - Encounter for screening, unspecified Comprehensive Met. Panel Today R74.01 - Elevation of levels of liver transaminase levels LDL Cholesterol Direct Today E11.9 - Type 2 diabetes mellitus without complications Lipid Panel Today E11.9 - Type 2 diabetes mellitus without complications, Z00.00 - Encounter for general adult medical examination without abnormal findings Coding Level of Care Code Est Pt Level 4 (34907) Diagnoses Diabetes type 2, controlled E11.9 Essential hypertension I10 Elevated liver enzymes R74.8
[2023-07-28 10:16] VITALS: BP 120/72; PULSE 80; O2SAT 98; BMI 45.8
== END 2023-07-28 10:41 | disposition home or self-care (01) ==
PROVIDERS: PCP Family Medicine; Visit Provider Family Medicine
DX: E11.9 Type 2 diabetes mellitus without complications (principal); I10 Essential (primary) hypertension; R74.8 Abnormal levels of other serum enzymes
CPT/HCPCS: 83036; 99214

== ENCOUNTER 2023-07-28 10:36 | Outpatient (REF) | payer OTHER, SELFPAY ==
[2023-07-28 14:50] LABS: Alanine Aminotransferase 35 U/L (0-31); Albumin Level 4.3 g/dL (3.5-5.0); Alkaline Phosphatase 98 U/L (39-117); Anion Gap 16 (12-20); Aspartate Amino Transferase 38 U/L (5-31); Bilirubin Total 1.1 mg/dL (0.0-1.0); Blood Urea Nitrogen 13 mg/dL (9-16); Carbon Dioxide 23 mmol/L (22-29); Chloride 106 mmol/L (96-108); Cholesterol 172 mg/dL (<200); Estimated Glomerular Filt Rate > 60; Glucose Fasting 87 mg/dL (60-99); Glucose Random 86 mg/dL (60-115); HDL Cholesterol 48 mg/dL (>40); LDL Cholesterol Calculated 100 mg/dL (<100); Potassium 3.5 mmol/L (3.3-5.1); Sodium 141 mmol/L (135-145); Total Protein 7.6 g/dL (6.5-8.0); Triglycerides 124 mg/dL (<150)
[2023-07-30 07:13] LABS: LDL Cholesterol Direct 105 mg/dL (<100)
== END 2023-07-28 10:37 | disposition home or self-care (01) ==
LOC: HO.WFDLDS 10:36
PROVIDERS: Visit Provider Family Medicine
DX: Z00.00 Encounter for general adult medical examination without abnormal findings (principal); E11.9 Type 2 diabetes mellitus without complications; R74.01 Elevation of levels of liver transaminase levels
CPT/HCPCS: 36415; 80053; 80061; 83721

== ENCOUNTER 2023-10-21 10:42 | Outpatient (AMB) | payer OTHER, SELFPAY ==
--- NOTE | 2023-10-21 10:59 | A.OFFPC_ITS ---
Vital Signs 10/21/23 11:02 Height 5 ft 0.08 in Weight 224 lb 2 oz BMI 43.7 BP 100/64 Blood Pressure Location Lt brachial Position Sitting Respiration 12 Pulse 78 Pulse Source Pulse Oximeter Temp 97.7 F Temp Source Tympanic Pulse Oximetry (%) 98 Oxygen Delivery Method Room Air Intake Visit Reasons: f/u diabetes, HTN Intake Note: follow up for diabetes and htn Allergies No Known Allergies Allergy (Verified 10/21/23 10:59) Medication List - Last Reconciled 10/21/23 by Rafael Bernal MD amlodipine 10 mg PO DAILY 90 days betamethasone dipropionate 0.05% 1 appl topical DAILY PRN 30 days blood sugar diagnostic (FreeStyle Lite Strips) DX: E11.9, test blood sugar once a day, 90 days blood-glucose meter (FreeStyle Lite Meter kit) DX: E11.9, test blood sugar once day, duration 999 days hydrochlorothiazide 25 mg PO DAILY lancets (FreeStyle Lancets) As directed lisinopril 10 mg PO DAILY metformin ER 500 mg PO BEDTIME omeprazole 20 mg PO DAILY Tobacco use date assessed: 04/28/23 Dental Screening Dental Screen Date: 04/28/23 HPI f/u diabetes, HTN HPI Details 43 y/o female presents to f/u diabetes, hypertension. Last A1c 07/28/23 6.5%. She is on metformin 500mg. Pt states morning blood sugars at home have been in the 120s. Blood pressure today 100/64. She is on amlodipine 10mg, hydrochlorothiazide 25mg, lisinopril 10mg daily. Had elevated liver enzymes from labs drawn in July. HPI Comments History of Present Illness Details Documentation assistance for Rafael Bernal MD, was provided by Michael Betancourt, Head Of Human Resources on 10/21/2023 at 11:18 AM EST. I, Dr. Bernal, have read, observed, and verified documentation. [facility] Medical History Hypertension Diabetes Surgical History No pertinent past surgical history Family History Mother Mental health disorder Father No problems noted. Brother Substance abuse Autism Maternal Grandmother Mental health disorder Social History Housing: Apartment Alcohol intake: never Patient Tobacco Use Status: Never used Tobacco e-Cigarette/Vaping Use: Never Used Second Hand Smoke Exposure: No service: No Current occupational status: disabled Current occupational exposures/hazards: No Cognitive needs: No Hearing needs: No Vision needs: No Questionnaire Thrive Questionnaire Date Thrive assessed: 04/28/23 JOSÉ LUIS-7 AMB Questionnaire JOSÉ LUIS-7 Date JOSÉ LUIS - 7 assessed: 04/28/23 Source: Developed by Drs. Ralph Carias, Constance Mcgee, Monico Clement and colleagues, with an educational viki from [employer]. Review of Systems Const Denies chills, Denies fatigue, Denies fever(s), Denies headache(s) and Denies weakness ENT Denies dizziness and Denies headache(s) Card Denies dyspnea Resp Denies cough, Denies dyspnea, Denies wheezing and Denies other (shortness of breath) Musc Denies numbness and Denies tingling Neuro Denies dizziness, Denies headache(s), Denies numbness, Denies tingling and Denies weakness Psych Denies anxiety and Denies depression Endo Denies fatigue Aller/Immun Denies wheezing Physical exam (Primary Care) Vital Signs: Last Vital Signs Temp 97.7 F 10/21/23 11:02 Pulse 78 10/21/23 11:02 Resp 12 10/21/23 11:02 BP 100/64 10/21/23 11:02 Pulse Ox 98 10/21/23 11:02 Oxygen Delivery Method Room Air 10/21/23 11:02 BMI result Body Mass Index 43.7 Tobacco/Smoking Status: Tobacco use Status Tobacco use date assessed 04/28/23 10/21/23 11:02 Patient Tobacco Use Status Never used Tobacco 10/21/23 11:02 e-Cigarette/Vaping Use Never Used 10/21/23 11:02 Thrive Assessment: Date of Thrive Assessment Date Thrive assessed 04/28/23 10/21/23 11:02 Const General: well developed; No acute distress Nutritional Appearance: well nourished and obese morbidly obese Orientation/consciousness: patient oriented x3 HENMT Head: Yes normocephalic and Yes atraumatic Eyes General: appearance normal, both eyes and all related structures Pupils: Equal, round and reactive pupils present EOM: EOMs intact bilaterally Resp Effort & Inspection: normal respiratory effort Auscultation: clear to auscultation bilaterally Cardio Rate: regular rate Rhythm: regular rhythm Heart sounds: S1 normal heart sound present, S2 normal heart sound present, no gallops, no murmurs and no rubs Neuro General: patient oriented x3 and gait normal Cranial nerves: Yes Equal, round and reactive pupils present Psych Affect: normal affect Assessment and Plan Assessment & Plan (1) Essential hypertension: Code(s): I10 - Essential (primary) hypertension Plan: Blood?pressure?is?controlled.??Goal?is?less?than?140/90 Continue?current?medication (2) Diabetes type 2, controlled: Code(s): E11.9 - Type 2 diabetes mellitus without complications Plan: A1c?was?6.5%?almost?3?mon ths?ago.??Not?time?to?recheck?this.??Goal?is?less?than?7.0% This?showed?good?control?at?that?time.??She?notes?that?her?morning?blood?sugars? are?around?120 Likely?she?still?has?fairly?good?control. No?medication?changes?today Continue?current?medicine?and?diabetic?diet. Still?has?not?been?seen?by?an?deputy fire chief.??Will?refer?her?to??María's? office (3) Elevated liver enzymes: Code(s): R74.8 - Abnormal levels of other serum enzymes (4) Elevated LDL cholesterol level: Code(s): E78.00 - Pure hypercholesterolemia, unspecified Orders: Orders Comprehensive [place]. Panel Fast Today Z00.00 - Encounter for general adult medical examination without abnormal findings Lipid Panel Today E78.00 - Pure hypercholesterolemia, unspecified, Z00.00 - Encounter for general adult medical examination without abnormal findings Microalbumin, Random (w Creat) Today I10 - Essential (primary) hypertension TSH reflex Free T4 Today Z00.00 - Encounter for general adult medical examination without abnormal findings UA and rflx microscopic Today Z00.00 - Encounter for general adult medical examination without abnormal findings Hemoglobin A1c Today E11.9 - Type 2 diabetes mellitus without complications, R73.01 - Impaired fasting glucose Complete Blood Count Auto Diff Today Z00.00 - Encounter for general adult medical examination without abnormal findings Referrals Ophthalmology Referral E11.9 - Type 2 diabetes mellitus without complications Medications: Refilled amlodipine 10 mg PO DAILY 90 days 90 tabs 3RF E11.9 - Type 2 diabetes mellitus without complications lisinopril 10 mg PO DAILY 90 tabs 1RF E11.9 - Type 2 diabetes mellitus without complications metformin ER 500 mg PO BEDTIME 90 tabs 0RF E11.9 - Type 2 diabetes mellitus without complications omeprazole 20 mg PO DAILY 90 caps 0RF E11.9 - Type 2 diabetes mellitus without complications hydrochlorothiazide 25 mg PO DAILY 90 tabs 2RF E11.9 - Type 2 diabetes mellitus without complications Coding Level of Care Code Est Pt Level 4 (27630) Diagnoses Essential hypertension I10 Diabetes type 2, controlled E11.9 Elevated liver enzymes R74.8 Elevated LDL cholesterol level E78.00
[2023-10-21 11:02] VITALS: BP 100/64; PULSE 78; RESP 12; TEMP 36.5; O2SAT 98; BMI 43.7
== END 2023-10-21 11:38 | disposition home or self-care (01) ==
PROVIDERS: PCP Family Medicine; Visit Provider Family Medicine
DX: I10 Essential (primary) hypertension (principal); E11.9 Type 2 diabetes mellitus without complications; R74.8 Abnormal levels of other serum enzymes; E78.00 Pure hypercholesterolemia, unspecified
CPT/HCPCS: 99214

== ENCOUNTER 2024-01-27 10:19 | Outpatient (REF) | payer OTHER, SELFPAY ==
[2024-01-27 14:22] LABS: Appearance Urine Clear; Color Urine Yellow; Glucose Urine UA Negative (Negative); Leukocyte Esterase Urine Negative (Negative); Nitrite Urine Negative (Negative); PH 5.5 (5.0-9.0); Specific Gravity - Urine 1.015 (1.005-1.025); Urine Blood Negative (Negative); Urine Ketones Negative (Negative); Urine Protein Negative (Neg-Trace)
[2024-01-27 14:26] LABS: MANUAL DIFF FLAG NO
[2024-01-27 14:42] LABS: Basophils Percent Auto 0.5 % (0-2); Eosinophils Absolute Auto 0.2 X10*3/uL (0.0-0.4); Eosinophils Percent Auto 3.4 % (0-4); Hematocrit 40.9 % (37.0-47.0); Hemoglobin 13.9 g/dl (12.0-16.0); Imm Gran Abs Auto 0.02 X10*3/uL (0.00-0.03); Imm Gran Pct Auto 0.3 % (0.0-0.4); Lymphocytes Absolute Auto 2.4 X10*3/uL (1.2-4.9); Lymphocytes Percent Auto 37.9 % (20-40); Mean Corpuscular Hemoglobin 31.7 pg (27.0-33.0); Mean Corpuscular Volume 93.4 fL (80.0-98.0); Mean Platelet Volume 9.5 fL (9.4-12.3); Monocytes Absolute Auto 0.4 X10*3/uL (0.1-1.2); Monocytes Percent Auto 6.4 % (2-11); Neutrophils Absolute Auto 3.2 x10*3/uL (2.0-8.3); Neutrophils Percent Auto 51.5 % (45-73); Platelet Count 361 X10*3/uL (160-400); Red Blood Count 4.38 X10*6/uL (4.20-5.50); Red Cell Distribution Width 13.8 % (11.0-16.0); White Blood Count 6.3 X10*3/uL (4.8-10.8)
[2024-01-27 15:06] LABS: Estimated Average Glucose 105 mg/dL; Hemoglobin A1C 121.3791 umol/L; Hemoglobin A1c % 5.3 % (<6.0); Total Hemoglobin (HGBA1C) 3517.6495 umol/L
[2024-01-27 15:11] LABS: Creatinine Urine 80.63 mg/dL; Microalbum/Creatinine Ratio Ur 8.6 ug/mg cr (<30)
[2024-01-27 15:34] LABS: TSH reflex Free T4 1.36 uIU/mL (0.32-4.0)
== END 2024-01-27 10:20 | disposition home or self-care (01) ==
LOC: HO.WFDLDS 10:19
PROVIDERS: Visit Provider Family Medicine
DX: Z00.00 Encounter for general adult medical examination without abnormal findings (principal); I10 Essential (primary) hypertension; R73.01 Impaired fasting glucose; E11.9 Type 2 diabetes mellitus without complications
CPT/HCPCS: 36415; 81003; 82043; 82570; 83036; 84443; 85025

== ENCOUNTER 2024-06-02 11:54 | Outpatient (REF) | payer OTHER, SELFPAY ==
[2024-06-02 15:07] LABS: Creatinine Urine 32.29 mg/dL; Microalbum/Creatinine Ratio Ur 71.2 ug/mg cr (<30)
== END 2024-06-02 11:55 | disposition home or self-care (01) ==
LOC: HO.LAB 11:54
PROVIDERS: PCP Family Medicine; Visit Provider Nurse Practitioner Family
DX: Z00.00 Encounter for general adult medical examination without abnormal findings (principal); E11.69 Type 2 diabetes mellitus with other specified complication; E78.00 Pure hypercholesterolemia, unspecified; K21.9 Gastro-esophageal reflux disease without esophagitis; R74.8 Abnormal levels of other serum enzymes; I10 Essential (primary) hypertension; G47.33 Obstructive sleep apnea (adult) (pediatric); F84.0 Autistic disorder; E66.9 Obesity, unspecified; Z68.41 Body mass index [BMI] 40.0-44.9, adult; Z79.899 Other long term (current) drug therapy; Z28.21 Immunization not carried out because of patient refusal
CPT/HCPCS: 82043; 82570; 83036; 96127; 99212; 99396

== ENCOUNTER 2024-06-02 11:54 | Outpatient (AMB) | payer OTHER, SELFPAY ==
--- NOTE | 2024-06-02 12:00 | A.OFFPC_ITS ---
Vital Signs 06/02/24 12:05 Height 5 ft 1 in Weight 212 lb 2 oz BMI 40.1 BP 122/74 Blood Pressure Location Lt brachial Position Sitting Respiration 12 Pulse 78 Pulse Source Pulse Oximeter Temp 97.2 F Temp Source Oral Pulse Oximetry (%) 96 Oxygen Delivery Method Room Air Intake Visit Reasons: CPE Intake Note: CPE Road Production General Manager Required: No Allergies No Known Allergies Allergy (Verified 06/02/24 12:36) Medication List - Last Reconciled 06/02/24 by JOANNE Aviles- amlodipine 10 mg PO DAILY 90 days betamethasone dipropionate 0.05% 1 appl topical DAILY PRN 30 days blood sugar diagnostic (FreeStyle Lite Strips) DX: E11.9, test blood sugar once a day, 90 days blood-glucose meter (FreeStyle Lite Meter kit) DX: E11.9, test blood sugar once day, duration 999 days hydrochlorothiazide 25 mg PO DAILY lancets (FreeStyle Lancets) As directed lisinopril 10 mg PO DAILY metformin ER 500 mg PO BEDTIME omeprazole 20 mg PO DAILY Tobacco use date assessed: 06/02/24 Dental Screening Dental Screen Date: 06/02/24 Did you have a dental visit in the last 12 months?: Yes Did you have a dental problem in the last 6 months where you did not have access to dental care?: No Was dental information given to patient?: Patient has dentist HPI HPI Comments History of Present Illness Details 43 y/o F with DM 2, HTN, elevated LFTs U S confirms hepatosteaotis 04/04/23, HLD, SYLVESTER on CPAP, obese, autism, GERD Health Maintenance Tdap declined Flu UTD Mammo 06/18/23 US 07/07/23 WNL, repeat 1 year Pap - referred to bike mechanic several times but has not made appt; new referral placed today Specialists Optho: [facility]- accepting new pts. Scheduled for New Pt DM eye exam 05/13/23 at 2:45 but did not go. Sleep Med History of Present Illness - The patient is a 43-year-old female pr esenting for a wellness and medication management visit. - Type 2 Diabetes Mellitus is being effe ctively managed with metformin, evidenced by a recent good control level of hemoglobin A1c at 5.2%. Overdue for DM eye; several referrals placed; Has not gone. Needs refill on testing supplies. - Prescription therapy for hypertension includes amlodipine, hydrochlorothiazide, and lisinopril. Current blood pressure control status @ goal. - Other chronic conditions discussed inc lude hyperlipidemia, elevated liver function tests with hepatic steatosis, and obesity, indicating a complex health profile. Walking more. Intentional Wt loss. - She manages obstructive sleep apnea wi th CPAP, continues to use omeprazole for gastroesophageal reflux disease, and has autism as part of her medical history. Past Surgical History None Family History - No changes in family medical history r eported. Social History - Engages in walking for exercise, contr ibuting to recent weight loss. Health Maintenance - Recent flu shot received. - Has not received a tetanus shot in the last 10 years; considered but declined at the visit. - Mamogram is scheduled next month. Review of Systems - General: Denies any new hospitalizatio ns in the past year. - Cardiovascular: Reports no recent issu es. - Gastrointestinal: Denies any problems with bowel or urinary function. - Neurological: No dizziness reported. - Mental Health: Denies depression and a nxiety. Physical Exam General: Well developed, well nourished, in no acute distress. Appears stated age. Head: Normocephalic, atraumatic. Eyes: Pupils are equal, round and reactive to light and accommodation. Conjunctivae are clear. Vision grossly normal. Ears: TMs clear AU, EACS WNL Nose: Patent, without discharge. Neck: Supple, no adenopathy or thyromegaly. Breast: Edu on SBE Lungs: Clear to auscultation bilaterally. No rales, rhonchi or wheeze noted. Good air flow in all villeda. Heart: Regular rate and rhythm. No murmurs, click, rubs or gallops are noted. Abdomen: Bowel sounds present in all quadrants. The abdomen is soft, nontender, with no masses or organomegaly noted. No hernias are noted. : Deferred. Reviewed recommendations for routine SET UP MECHANIC COATING MACHINES Pulses: Peripheral pulses are equal and palpable bilaterally. Extremities: No clubbing, cyanosis nor edema is noted. Nice healthy feet. Nice strong pulses. DM foot exam WNL Neurologic: Gait and station normal. Cranial Nerves 2-12 intact. Motor strength grossly symmetrical and intact. No sensory loss. Balance normal. Skin: No rashes, ulcers, or lesions noted. Turgor is good. Skin color is good. Hair and nails are without abnormalities. Psych: Normal eye contact, affect and mood appropriate, and normal interactions. Patient is alert and appropriate to context. Mood looks pretty decent on paper. No depression or anxiety noted. Results - Labs: Hemoglobin A1c 5.2%, indicating good diabetic control. Discussion Notes During the visit, I discussed the management of the patient's various chronic conditions, including her diabetes, hypertension, and gastroesophageal reflux disease. We reviewed her medication list and I agreed to send refills for her current prescriptions, except for the blood pressure medicines pending results from today's labs to check kidney function. The importance of keeping up with routine health maintenance screenings, such as a mammogram and diabetic eye exam, was emphasized. I also addressed the benefits and risks regarding the possible tetanus shot, which she decided to decline. Consent was obtained verbally for labs to assess metabolic health, specifically kidney function, vitamin B12, and cholesterol levels. Follow-up care will be based on these lab r esults and a referral for a diabetic eye exam was planned. Assessment and Plan 1. Type 2 Diabetes Mellitus: The patient is maintaining excellent glycemic control on metformin with an A1c of 5.2%, and we will continue her on this medication. 2. Hypertension: The patient is on a reg imen of amlodipine, hydrochlorothiazide, and lisinopril; continuation contingent on kidney function labs. 3. Elevated Liver Function Tests: Monito ring continues as part of her overall health management plan. Patient Instructions - Continue current medication regimen as discussed. - Keep up the walking routine for exerci se and weight management. - Complete labs as ordered before mark villaseñor the facility today. - Schedule and attend an eye exam for di abetes management. - Follow up with routine health screenin , including a mammogram. - RTO [address] Harpreet winchester DM mgmt fu, sooner PRN Consent Patient was informed and verbally consented to the use of an ambient scribe for clinic note documentation during this visit. [facility] Medical History Hypertension Diabetes Surgical History No pertinent past surgical history Family History Mother Mental health disorder Father No problems noted. Brother Substance abuse Autism Maternal Grandmother Mental health disorder Social History Housing: Apartment Alcohol intake: never Patient Tobacco Use Status: Never used Tobacco e-Cigarette/Vaping Use: Never Used Second Hand Smoke Exposure: No service: No Current occupational status: disabled Current occupational exposures/hazards: No Cognitive needs: No Hearing needs: No Vision needs: No Questionnaire PHQ-9 Over the last 2 weeks, how often have you been bothered by any of the following problems? 1. Little interest or pleasure in doing things: not at all 2. Feeling down, depressed, or hopeless: not at all 3. Trouble falling or staying asleep, or sleeping too much: not at all 4. Feeling tired or having little energy: not at all 5. Poor appetite or overeating: not at all 6. Feeling bad about yourself - or that you are a failure or have let yourself or your family down: not at all 7. Trouble concentrating on things, such as reading the newspaper or watching television: not at all 8. Moving or speaking so slowly that other people could have noticed. Or the opposite - being so fidgety or restless that you have been moving around a lot more than usual: not at all 9. Thoughts that you would be better off or of hurting yourself in some way: not at all Total score: 0 Depression Screening Interpretation: Negative Depression Screening Done: Yes 56941 - PHQ-9 Billing: Yes Source: Developed by Drs. Ralph Carias, Constance Mcgee, Monico Clement and colleagues, with an educational viki from [employer]. Thrive Questionnaire Date Thrive assessed: 06/02/24 I am a: Patient What is your living situation today?: I have a steady place to live Within the past 12 months, did the food you bought not last and you didn't have the money to get more?: Never true Within the past 12 months, did you worry whether your food would run out before you got money to buy more?: Never true Do you have trouble paying for medicines?: No Do you have trouble getting transportation to medical appointments?: No Do you have trouble paying your heating and electricity bill?: No Do you have trouble taking care of your child, family member or friend?: No Do you have trouble with day-to-day activities such as bathing, preparing meals, shopping, managing finances, etc.?: No Are you currently unemployed and looking for a job?: I choose not to answer this question Are you interested in more education?: No Please select the resources that you would like help with: None Currently or been in a relationship where the following occur: No concerns reported THRIVE Score: 0 AUDIT C Alcohol Use Questionnaire (AUDIT-C) 1. How often do you have a drink containing alcohol?: Never 3. How often do you have six or more drinks on one occasion?: Never Total Score: 0 Score Reviewed/Action Taken: Yes JOSÉ LUIS-7 AMB Questionnaire JOSÉ LUIS-7 Date JOSÉ LUIS - 7 assessed: 06/02/24 Feeling nervous, anxious, or on edge: 0 = Not at all Not being able to stop or control worryin = Not at all Worrying too much about different things: 0 = Not at all Trouble relaxin = Not at all Being so restless that it is hard to sit still: 0 = Not at all Becoming easily annoyed or irritable: 0 = Not at all Feeling afraid as if something awful might happen: 0 = Not at all Total JOSÉ LUIS-7 score (0-4 normal; 5-9 mild; 10-14 moderate; 15-21 severe): 0 Source: Developed by Drs. Ralph Carias, Constance Mcgee, Monico Clement and colleagues, with an educational viki from [employer]. JOSÉ LUIS-7 Assessment Billing JOSÉ LUIS-7 Assessment Tool: JOSÉ LUIS-7 Assessment 18710 Physical exam (Primary Care) Vital Signs: Last Vital Signs Temp 97.2 F 06/02/24 12:05 Pulse 78 06/02/24 12:05 Resp 12 06/02/24 12:05 BP 122/74 06/02/24 12:05 Pulse Ox 96 06/02/24 12:05 Oxygen Delivery Method Room Air 06/02/24 12:05 BMI result Body Mass Index 40.1 BMI Assessment/Plan discussion: High BMI High, discussed plan: lifestyle Tobacco/Smoking Status: Tobacco use Status Tobacco use date assessed 06/02/24 06/02/24 12:04 Patient Tobacco Use Status Never used Tobacco 06/02/24 12:04 e-Cigarette/Vaping Use Never Used 06/02/24 12:04 PHQ-9: PHQ-9 Score PHQ-9: Total score 0 06/02/24 12:42 Depression Screening Interpretation: Negative Thrive Assessment: Date of Thrive Assessment Date Thrive assessed 06/02/24 06/02/24 12:04 Currently or been in a relationship where the following occur: No concerns reported Office Procedures Diabetic Foot Exam Details: normal monofilament and vibratory sensation G9226 - Diabetic Foot Exam Results AMB Hemoglobin A1c AMB Hemoglobin A1c 5.2 % Last Edit by Manuela Yu MA on 06/02/24 12:17 Results Reviewed Results Reviewed: Laboratory Last Values Hgb A1c (Clinic) 5.2 % (4.0-6.0) 06/02/24 12:01 Coding Level of Care Code Est Pt Level 4 (80581) Est Pt Prev Care 40-64y(61316) Diagnoses Adult general medical exam Z00.00 Controlled type 2 diabetes mellitus with other specified complication, without long-term current use of insulin E11.69 Diabetes mellitus vocational case manager insulin use: without vocational case manager use Diabetes mellitus complication status: with other specified complication Elevated LDL cholesterol level E78.00 Influenza vaccination declined Z28.21 Tetanus, diphtheria, and acellular pertussis (Tdap) vaccination declined Z28.21 Gastroesophageal reflux disease without esophagitis K21.9 Esophagitis presence: without esophagitis Body mass index [BMI]40.0-44.9, adult Z68.41 Elevated liver enzymes R74.8 Essential hypertension I10 SYLVESTER (obstructive sleep apnea) G47.33 Autism F84.0 CPT Codes Diabetic Foot Exam - CPT: G9226 - Diabetic Foot Exam ([id number]) Additional Codes JOSÉ LUIS-7 Assessment Billing - JOSÉ LUIS-7 Assessment Tool: JOSÉ LUIS-7 Assessment 70526 ([id number]) PHQ-9 - 72665 - PHQ-9 Billing: Yes ([id number]) Assessment & Plan Assessment & Plan (1) Adult general medical exam: Code(s): Z00.00 - Encounter for general adult medical examination without abnormal findings Category: Medical (2) Diabetes type 2, controlled: Comment: with htn and hld Code(s): E11.9 - Type 2 diabetes mellitus without complications Category: Medical Qualifiers: Diabetes mellitus group home insulin use: without vocational case manager use Diabetes mellitus complication status: with other specified complication Qualified Code(s): E11.69 - Type 2 diabetes mellitus with other specified complication (3) Elevated LDL cholesterol level: Comment: not on statin repeat labs today Code(s): E78.00 - Pure hypercholesterolemia, unspecified Category: Medical (4) Influenza vaccination declined: Comment: as she got this season elsewhere Code(s): Z28.21 - Immunization not carried out because of patient refusal Category: Medical (5) Tetanus, diphtheria, and acellular pertussis (Tdap) vaccination declined: Code(s): Z28.21 - Immunization not carried out because of patient refusal Category: Medical (6) Acid reflux: Code(s): K21.9 - Gastro-esophageal reflux disease without esophagitis Category: Medical Qualifiers: Esophagitis presence: without esophagitis Qualified Code(s): K21.9 - Gastro-esophageal reflux disease without esophagitis (7) Body mass index [BMI]40.0-44.9, adult: Comment: with dm and htn Code(s): Z68.41 - Body mass index [BMI] 40.0-44.9, adult Category: Medical (8) Elevated liver enzymes: Code(s): R74.8 - Abnormal levels of other serum enzymes Category: Medical (9) Essential hypertension: Code(s): I10 - Essential (primary) hypertension Category: Medical (10) SYLVESTER (obstructive sleep apnea): Comment: A mild degree of sleep apnea. The total AHI was 12/hr and oxygen dyllan was 71% managed by sleep med on CPAP Code(s): G47.33 - Obstructive sleep apnea (adult) (pediatric) Category: Medical (11) Autism: Code(s): F84.0 - Autistic disorder Category: Medical Plan . Orders: Orders Lipid Panel Today E11.9 - Type 2 diabetes mellitus without complications, E78.00 - Pure hypercholesterolemia, unspecified AMB Hemoglobin A1c Today Z13.9 - Encounter for screening, unspecified Microalbumin, Random (w Creat) Today E11.9 - Type 2 diabetes mellitus without complications Comprehensive [place]. Panel Fast Today E11.9 - Type 2 diabetes mellitus without complications, E78.00 - Pure hypercholesterolemia, unspecified Vitamin B12 and Folate Today E11.9 - Type 2 diabetes mellitus without complications, E78.00 - Pure hypercholesterolemia, unspecified TSH reflex Free T4 Today E11.9 - Type 2 diabetes mellitus without complications, E78.00 - Pure hypercholesterolemia, unspecified Referrals Ophthalmology Referral E11.9 - Type 2 diabetes mellitus without complications Ophthalmology Referral E11.9 - Type 2 diabetes mellitus without complications CERTIFIED CORPORATE TRAVEL EXECUTIVE Referral E11.9 - Type 2 diabetes mellitus without complications, Z12.4 - Encounter for screening for malignant neoplasm of cervix Medications: Refilled betamethasone dipropionate 0.05% 1 appl topical DAILY PRN 45 grams 2RF skin irritation 30 days blood-glucose meter (FreeStyle Lite Meter kit) DX: E11.9, test blood sugar once day, duration 999 days 1 ea 0RF E11.9 - Type 2 diabetes mellitus without complications metformin ER 500 mg PO BEDTIME 90 tabs 2RF E11.9 - Type 2 diabetes mellitus without complications blood sugar diagnostic (FreeStyle Lite Strips) DX: E11.9, test blood sugar once a day, 90 days 100 ea 4RF E11.9 - Type 2 diabetes mellitus without complications lancets (FreeStyle Lancets) As directed 100 ea 4RF DX: E11.9, test blood sugar once a day, 90 E11.9 - Type 2 diabetes mellitus without complications omeprazole 20 mg PO DAILY 90 caps 2RF E11.9 - Type 2 diabetes mellitus without complications Patient Instructions: Health screenings for women You should visit your health care provider from time to time, even if you are healthy. The purpose of these visits is to: Screen for medical issues Assess your risk for future medical problems Encourage a healthy lifestyle Update vaccinations and other preventive care services Help you get to know your provider in case of an illness Information Even if you feel fine, you should still see your provider for regular checkups. These visits can help you avoid problems in the future. For example, the only way to find out if you have high blood pressure is to have it checked regularly. High blood sugar and high cholesterol levels also may not have any symptoms in the early stages. A simple blood test can check for these conditions. There are specific times when you should see your provider or receive specific health screenings. The [place] Preventive Services Task Force publishes a list of recommended screenings. Below are screening guidelines for women ages 18 to 39. BLOOD PRESSURE SCREENING Your blood pressure should be checked at least once every 3 to 5 years if: Your blood pressure is in the normal range (top number less than 120 mm Hg and bottom number less than 80 mm Hg) You don't have risk factors for high blood pressure Ask your provider if you need your blood pressure checked more often if: The top number is 120 to 129 mm Hg or the bottom number is 70 to 79 mm Hg You have diabetes, heart disease, kidney problems, are overweight, or have certain other health conditions You have a first-degree relative with high blood pressure You are Black You had high blood pressure during a If the top number is 130 mm Hg or greater or the bottom number is 80 mm Hg or greater, this is considered stage 1 hypertension. Schedule an appointment with your provider to learn how you can reduce your blood pressure. Watch for blood pressure screenings in your area. Ask your provider if you can stop in to have your blood pressure checked. BREAST CANCER SCREENING Experts do not agree about the benefits of breast self-exams in finding breast cancer or saving lives. Talk to your provider about what is best for you. A screening mammogram is not recommended for most women under age 40. Your provider may discuss and recommend mammograms, MRI scans, or ultrasounds if you have an increased risk for breast cancer, such as: A mother or sister who had breast cancer at a young age (most often starting screening earlier than the age the close relative was diagnosed) You carry a high-risk genetic marker CERVICAL CANCER SCREENING Cervical cancer screening should start at age 21 years unless your provider advises otherwise. After the first test: Women ages 21 through 29 should have a Pap test every 3 years. Exoprts do not agree on whether HPV testing is recommended for this age group. Women ages 30 through 65 should be screened with either a Pap test every 3 years or the HPV test every 5 years or both tests every 5 years (called cotesting ). Women who have been treated for precancer (cervical dysplasia) should continue to have Pap tests for 20 years after treatment or until age 65, whichever is longer. If you have had your uterus and cervix removed (total hysterectomy), and you have not been diagnosed with cervical cancer or precancer (high grade cervical neoplasia), you do not need cervical cancer screening. CHOLESTEROL SCREENING Cholesterol screening should begin at: Age 45 for women with no known risk factors for coronary heart disease Age 20 for women with known risk factors for coronary heart disease Repeat cholesterol screening should take place: Every 5 years for women with normal cholesterol levels More often if changes occur in lifestyle (including weight gain and diet) More often if you have diabetes, heart disease, kidney problems, or certain other conditions DIABETES SCREENING You should be screened for diabetes starting at age 35 and then repeated every 3 years if you have no risk factors for diabetes. Screening may need to start earlier and be repeated more often if you have other risk factors for diabetes, such as: You have a first degree relative with diabetes. You are overweight or have obesity. You have high blood pressure, prediabetes, or a history of heart disease. Screening for diabetes should be done if you are planning to become and you are overweight and have other risk factors such as high blood pressure. DENTAL EXAM Go to the dentist once or twice every year for an exam and cleaning. Your dentist will evaluate if you need more frequent visits. EYE EXAM Have an eye exam every 5 to 10 years before age 40. If you have vision problems, have an eye exam every 2 years or more often if recommended by your provider. You should have an eye exam that includes an examination of your retina (back of your eye) at least every year if you have diabetes. IMMUNIZATIONS Commonly needed vaccines include: Flu shot: get one every year. COVID-19 vaccine: ask your provider what is best for you. Tetanus-diphtheria and acellular pertussis (Tdap) vaccine: have one at or after age 19 as one of your tetanus-diphtheria vaccines if you did not receive it as an adolescent. Tetanus-diphtheria: have a booster (or Tdap) every 10 years. Varicella vaccine: receive 2 doses if you never had chickenpox or the varicella vaccine. Hepatitis B vaccine: receive 2, 3, or 4 doses, depending on your exact circumstances. Measles, mumps, and rubella (MMR) vaccine: receive 1 to 2 doses if you are not already immune to MMR. Your provider can tell you if you are immune. Ask your provider about the human papillomavirus (HPV) vaccine if: You have not received the HPV vaccine in the past You have not completed the full vaccine series (you should catch up on this shot) Ask your provider if you should receive other immunizations if you have certain health problems that increase your risk for some diseases such as pneumonia. INFECTIOUS DISEASE SCREENING Women who are sexually active should be screened for chlamydia and gonorrhea up until age 25. Women 25 years and older should be screened for chlamydia and gonorrhea if at high risk. Screening for hepatitis C: All adults ages 18 to 79 should get a one-time test for hepatitis C. people should be screened at every . Screening for human immunodeficiency virus (HIV): All people ages 15 to 65 should get a one-time test for HIV. Depending on your lifestyle and medical history, you may also need to be screened for infections such as syphilis and HIV, as well as other infections. PHYSICAL EXAM All adults should visit their provider from time to time, even if they are healthy. The purpose of these visits is to: Screen for disease Assess your risk of future medical problems Encourage a healthy lifestyle Update your vaccinations and other preventive care services Maintain a relationship with a provider in case of an illness Your height, weight, and BMI should be checked at every exam. During your exam, your provider may ask you about: Depression and anxiety Diet and exercise Alcohol and tobacco use Safety issues, such as using seat belts, smoke detectors, and intimate partner violence Your medicines and risk for interactions SKIN SELF-EXAM Your provider may check your skin for signs of skin cancer, especially if you're at high risk, such as if you: Have had skin cancer before Have close relatives with skin cancer Have a weakened immune system OTHER SCREENING Talk with your provider about colon cancer screening if you have a strong family history of colon cancer or polyps, or if you have had inflammatory bowel disease or polyps yourself. Routine bone density screening of women under 40 is not recommended.
[2024-06-02 12:05] VITALS: BP 122/74; PULSE 78; RESP 12; TEMP 36.2; O2SAT 96; BMI 40.1
== END 2024-06-02 12:48 | disposition home or self-care (01) ==
LOC: HO.HMCFM 11:55
PROVIDERS: PCP Family Medicine; Visit Provider Nurse Practitioner Family
DX: Z00.00 Encounter for general adult medical examination without abnormal findings (principal); E11.69 Type 2 diabetes mellitus with other specified complication; Z68.41 Body mass index [BMI] 40.0-44.9, adult; E78.00 Pure hypercholesterolemia, unspecified; Z28.21 Immunization not carried out because of patient refusal; K21.9 Gastro-esophageal reflux disease without esophagitis; R74.8 Abnormal levels of other serum enzymes; I10 Essential (primary) hypertension; G47.33 Obstructive sleep apnea (adult) (pediatric); F84.0 Autistic disorder; Z13.9 Encounter for screening, unspecified

== ENCOUNTER 2024-08-11 08:50 | Outpatient (REF) | payer OTHER, SELFPAY ==
[2024-08-11 13:01] LABS: Folate 12.2 ng/mL (> or = 4.0); Vitamin B12 639 pg/mL (200-900)
[2024-08-11 15:05] LABS: TSH reflex Free T4 1.14 uIU/mL (0.32-4.0)
[2024-08-11 15:07] LABS: Anion Gap 10 (12-20)
[2024-08-11 15:12] LABS: Alanine Aminotransferase 34 U/L (0-31); Albumin Level 4.3 g/dL (3.5-5.0); Alkaline Phosphatase 67 U/L (39-117); Aspartate Amino Transferase 37 U/L (5-31); Bilirubin Total 1.3 mg/dL (0.0-1.0); Blood Urea Nitrogen 10 mg/dL (9-16); Calcium 9.4 mg/dL (8.4-10.2); Carbon Dioxide 28 mmol/L (22-29); Chloride 107 mmol/L (96-108); Cholesterol 163 mg/dL (<200); Estimated Glomerular Filt Rate > 60; Glucose Fasting 88 mg/dL (60-99); HDL Cholesterol 47 mg/dL (>40); LDL Cholesterol Calculated 103 mg/dL (<100); Potassium 3.8 mmol/L (3.3-5.1); Sodium 141 mmol/L (135-145); Total Protein 7.1 g/dL (6.5-8.0); Triglycerides 69 mg/dL (<150)
== END 2024-08-11 08:51 | disposition home or self-care (01) ==
LOC: HO.WFDLDS 08:50
PROVIDERS: Visit Provider Nurse Practitioner Family
DX: E11.9 Type 2 diabetes mellitus without complications (principal); E78.00 Pure hypercholesterolemia, unspecified
CPT/HCPCS: 36415; 80053; 80061; 82607; 82746; 84443